=== PATIENT | male | born 1995 | race Hispanic/Latino ===

== ENCOUNTER 2020-11-29 13:30 | Emergency (ER) | payer OTHER ==
[~2020-11-29] VITALS: Ht 167.6 cm; Wt 87.1 kg
[2020-11-29] MEDS ORDERED: ONDANSETRON ODT8 MG PO (14:52)
== END 2020-11-29 15:16 | disposition home or self-care (01) ==
LOC: ED 13:30
DX: A08.4 Viral intestinal infection, unspecified (principal)
CPT/HCPCS: 80053; 85025; 96374; 99284-25; J2405; J7030